=== PATIENT | female | born 1985 | race Caucasian/White ===

== ENCOUNTER 2024-04-17 15:58 | Outpatient (CLI) | payer OTHER, SELFPAY ==
[2024-04-17 17:12] LABS: HCG,Quantitative 11650 mIU/ml (0-5.42)
[2024-04-19 08:20] LABS: Progesterone 43.6 ng/mL (.)
== END 2024-04-17 23:59 | disposition home or self-care (01) ==
LOC: LAB 16:01
PROVIDERS: PCP Pediatrics; Visit Provider Nurse Practitioner Obstetrics & Gynecology
DX: Z32.01 Encounter for pregnancy test, result positive (principal)
CPT/HCPCS: 36415; 84144; 84702

== ENCOUNTER 2024-05-01 16:23 | Outpatient (CLI) | payer OTHER, SELFPAY | END 2024-05-01 23:59 | disposition home or self-care (01) | LOC: LAB.DROPOF 16:24 | PROVIDERS: PCP Obstetrics & Gynecology; Visit Provider Obstetrics & Gynecology | DX: O26.893 Other specified pregnancy related conditions, third trimester (principal); Z3A.28 28 weeks gestation of pregnancy | CPT/HCPCS: 87086 ==

== ENCOUNTER 2024-05-02 10:21 | Outpatient (CLI) | payer OTHER, SELFPAY ==
--- NOTE | 2024-05-02 10:29 | US_ITS ---
PROCEDURE: US OB /MATERNAL DETAIL CLINICAL INDICATION: Uncertain dates , US OB Complete COMPARISON: No exams were available for comparison FINDINGS: Transabdominal sonographic images of the pelvis were obtained. Her established due date is unknown. Single viable intrauterine gestation. Cephalic position. Placenta: Anteriorplacenta grade 1. There is an average amount of fluid. The cervix appears satisfactory. Closed and measuring 3.3 cm in length. Complete survey performed and was unremarkable on the submitted images as in PACS. No discrete anomalies identified on survey imaging by technologist. Active fetus. Three-vessel cord with satisfactory umbilical cord insertion. 4- chamber heart noted. Situs, aortic arch, LVOT, RVOT, three-vessel view appear normal. Survey of brain & ventricles Unremarkable. Cerebellum, thalamus, choroid plexus, cisterna magna appear normal. Face and neck survey unremarkable. Profile, nasion, lips and nose appeared normal. Diaphragm and chest views unremarkable. Abdomen: Both kidneys noted and unremarkable. Stomach and bladder noted and satisfactory. Spine: Survey of the spine satisfactory with no anomalies identified nor imaged. Cervical, thoracic, lower spine appear normal. Both arms and legs noted. Amniotic Fluid: Adequate. Measurements: Average ultrasound age 27weeks 3days. Estimated due date by ultrasound age 0907/29/2024. Estimated weight 1,034g, 2 lb 4 oz. BPD = 27weeks 1day HC = 27weeks 6days AC = 26weeks 6days FL = 27weeks 4days Heart Rate = 143bpm Cerebellum = 27weeks 6days Humerus = 27weeks 3days HC/AC is 1.14 FL/BPD is 0.76 FL/AC is 0.23 IMPRESSION: 1. Viable fetus in the cephalic presentation with an anterior placenta grade 1. 2. The fluid is within normal limits. 3. Anatomical scan appears normal. 4. From this ultrasound her due date will be July 29, 2024. Gestational age is 27 weeks 3 days. Dictated by: Zeke Hollins MD 05/03/2024 08:21 Zeke Hollins MD in OV 05/03/2024 08:21
[2024-05-02 11:45] LABS: Basophils % 0.5 % (0.1-2.0); Eosinophils # 0.2 K/mm3 (0.0-0.4); Eosinophils % 1.8 % (0.1-12.0); Hematocrit 31.1 % (37.0-47.0); Hemoglobin 10.8 g/dL (12.2-16.2); Lymphocytes # 2.4 K/mm3 (0.7-4.5); Lymphocytes % 25.8 % (10-50); Mean Corpuscular HGB Conc 34.8 g/dL (31.8-35.4); Mean Corpuscular Volume 97.9 fl (81-99); Mean Platelet Volume 6.9 fl (7.4-10.4); Monocytes # 0.5 K/mm3 (0.1-1.0); Monocytes % 5.4 % (1.7-9.3); Neutrophils # 6.2 K/mm3 (1.8-7.8); Neutrophils % 66.5 % (37.0-80.0); Platelet Count 351 K/mm3 (142-424); Red Blood Count 3.18 M/mm3 (4.20-5.40); Red Cell Distribution Width 13.4 % (11.5-17.5); White Blood Count 9.3 K/mm3 (4.8-10.8)
[2024-05-02 12:54] LABS: Hemoglobin A1C 4.9 % (4.0-6.0)
[2024-05-03 07:56] LABS: HIV (1&2) Antibody Rapid NON REACTIVE
[2024-05-03 10:06] LABS: HCV Ab Non Reactive (Non Reactive); Hepatitis B Surface Antigen Negative (Negative); Rubella Antibodies, IgG 3.54 index (Immune >0.99)
[2024-05-03 10:11] LABS: Rapid Plasma Reagin Ab Titer Non Reactive titer (NonRea<1:1)
== END 2024-05-02 23:59 | disposition home or self-care (01) ==
PROVIDERS: Visit Provider Obstetrics & Gynecology
DX: Z36.3 Encounter for antenatal screening for malformations (principal); O09.522 Supervision of elderly multigravida, second trimester; O09.32 Supervision of pregnancy with insufficient antenatal care, second trimester; O99.332 Smoking (tobacco) complicating pregnancy, second trimester; O99.322 Drug use complicating pregnancy, second trimester; O09.892 Supervision of other high risk pregnancies, second trimester; Z3A.27 27 weeks gestation of pregnancy; Z72.89 Other problems related to lifestyle; F41.9 Anxiety disorder, unspecified; F60.3 Borderline personality disorder; F43.12 Post-traumatic stress disorder, chronic; Z86.59 Personal history of other mental and behavioral disorders
CPT/HCPCS: 36415; 76811; 83036; 85025; 86593; 86762; 86850; 87340

== ENCOUNTER 2024-07-09 16:55 | Outpatient (CLI) | payer OTHER, SELFPAY | END 2024-07-09 23:59 | disposition home or self-care (01) | LOC: LAB.DROPOF 16:56 | PROVIDERS: PCP Obstetrics & Gynecology; Visit Provider Obstetrics & Gynecology | DX: Z34.90 Encounter for supervision of normal pregnancy, unspecified, unspecified trimester (principal) | CPT/HCPCS: 86403 ==

== ENCOUNTER 2024-07-18 11:48 | Outpatient (CLI) | payer OTHER, SELFPAY ==
[2024-07-18 11:50] VITALS: BP 127/86; PULSE 75; RESP 18; TEMP 36.7; O2SAT 99; BMI 30.2
[2024-07-18] MEDS: LACTATED RINGERS 1000ML 1,000 ML 999 ML IV (12:45)
== END 2024-07-18 14:10 | disposition home or self-care (01) ==
LOC: OBOUT 11:50 → OB 11:51
PROVIDERS: Visit Provider Obstetrics & Gynecology
DX: O36.8330 Maternal care for abnormalities of the fetal heart rate or rhythm, third trimester, not applicable or unspecified (principal); Z3A.38 38 weeks gestation of pregnancy
CPT/HCPCS: G0463; J7120

== ENCOUNTER 2024-07-23 00:37 | Inpatient (IN) | payer OTHER, SELFPAY ==
[2024-07-23 01:06] VITALS: BMI 30.2
[2024-07-23 01:28] LABS: Microscopic, Urine URINE MICROSCOPIC (MICROSCOPIC)
[2024-07-23 01:30] VITALS: BP 138/79; PULSE 74; RESP 18; TEMP 36.6; BMI 30.2
[2024-07-23 01:30] LABS: Appearance,Urine CLEAR (Clear); Bilirubin,Urine Negative (Negative); Blood, Urine Negative (Negative); Color,Urine YELLOW (Yellow); Glucose,Urine (UA) Negative (Negative); Ketones,Urine Negative (Negative); Leukocyte Esterase,Urine Negative (Negative); Nitrate,Urine Negative (Negative); Protein,Urine Negative (Negative); Urobilinogen,Urine 0.2 EU/dl (0.2)
[2024-07-23 01:39] LABS: Bacteria,Urine 1+ /lpf
[2024-07-23 01:50] LABS: Benzodiazepines Screen,Urine Negative ng/ml (<200)
[2024-07-23 01:51] LABS: Barbiturates Screen,Urine Negative ng/ml (<200); Cannabinoid Screen,Urine Negative ng/ml (<50)
[2024-07-23 01:52] LABS: Cocaine Screen,Urine Negative ng/ml (<300)
[2024-07-23 01:53] LABS: Methadone Screen,Urine Negative ng/ml (<300); Opiate Screen,Urine Negative ng/ml (<300)
[2024-07-23 01:54] LABS: Phencyclidine Screen,Urine Negative ng/ml (<25)
[2024-07-23] MEDS: BUTORPHANOL TARTRATE 1 MG/ML VIAL IV (03:00)
[2024-07-23 03:04] LABS: Basophils % 0.3 % (0.1-2.0); Eosinophils # 0.1 K/mm3 (0.0-0.4); Eosinophils % 1.1 % (0.1-12.0); Hematocrit 32.7 % (37.0-47.0); Hemoglobin 10.3 g/dL (12.2-16.2); Lymphocytes # 2.7 K/mm3 (0.7-4.5); Lymphocytes % 26.4 % (10-50); Mean Corpuscular HGB Conc 31.6 g/dL (31.8-35.4); Mean Corpuscular Volume 95.2 fl (81-99); Mean Platelet Volume 7.2 fl (7.4-10.4); Monocytes # 0.6 K/mm3 (0.1-1.0); Monocytes % 6.1 % (1.7-9.3); Neutrophils # 6.8 K/mm3 (1.8-7.8); Neutrophils % 66.1 % (37.0-80.0); Platelet Count 360 K/mm3 (142-424); Red Blood Count 3.43 M/mm3 (4.20-5.40); Red Cell Distribution Width 14.9 % (11.5-17.5); White Blood Count 10.4 K/mm3 (4.8-10.8)
[2024-07-23 04:12] LABS: Ethyl Alcohol < 10 mg/dl (0-10)
[2024-07-23] MEDS: LACTATED RINGERS 1000ML 1,000 ML 250 ML IV (05:41)
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
[2024-07-23] MEDS: DEXTROSE 5%-LACTATED RINGERS 1,000 ML 125 ML IV (07:31)
[2024-07-23] MEDS: OXYTOCIN/RINGERS LACTATE 30 UNITS/500 ML BAG IV (07:31)
[2024-07-23 07:36] VITALS: BP 121/72; PULSE 63; RESP 16; TEMP 36.3; O2SAT 98
--- NOTE | 2024-07-23 08:31 | P.CONPHA_ITS ---
Pharmacy Intervention Comments: MEDICATION RECONCILIATION COMPLETED ON PATIENT USING EXTERNAL FILL HISTORY FROM PHARMACY AND LIST FROM HEALTHCARE CORPORATE ACCOUNT DIRECTOR OFFICE. -VALENTINA RODRIGUEZD
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
[2024-07-23] MEDS: diphenhydrAMINE 50MG/ML VIAL 12.5 MG IV (09:37)
[2024-07-23 11:04] LABS: Cord Blood PH 7.31 (7.35-7.45)
[2024-07-23] MEDS: OXYTOCIN/RINGERS LACTATE 30 UNITS/500 ML BAG 40 UNITS IV (11:07)
--- NOTE | 2024-07-23 11:07 | EXP.DN ---
Delivery Note Delivery Date:: 07/23/24 Delivery Time:: 10:53 Anesthesia Type: Epidural Was labor medically induced?: No Induction method: none Gestational age (weeks): 39 Infant delivered prior to 39 weeks?: No Gender: Female at 1 minute: 7 at 5 minutes: 9 Delivery Procedure:: Mom complete with epidural. Pushed for approximately 11 minutes. Head delivered spontaneously over intact perineum in OA position. No nuchal cord. Anterior shoulder delivered with gentle downward pressure. Posterior shoulder and remainder of body delivered spontaneously. Baby placed on maternal abdomen, mouth and nares bulb suctioned, warmed/dried and stimulated. Delayed cord clamping was performed for 60 seconds. Cord was clamped and cut by father of baby. Umbilical cord gases obtained. Cord blood was obtained. Placenta delivered spontaneously and intact. Placenta and umbilical cord meconium stained. Odor noted. Aerobic and anaerobic cultures collected. Placenta will be sent to pathology for review. No lacerations. Mom and baby were skin to skin and doing well after delivery. Live female baby (baby's name is Any) APGARs 7 (1 min), 9 (5 min) EBL 50 mL Placental Delivery Description: Spontaneous
[2024-07-23 11:10] LABS: Cord Blood PH 7.18 (7.35-7.45)
[2024-07-23] MEDS: IBUPROFEN 400 MG TABLET 800 MG PO ×2 (13:49→21:52)
--- NOTE | 2024-07-23 14:00 | SW/DCPLANNER ---
Addendum entered by Radha Linwood 07/25/24 15:27: Per Olga w/ CPS the plan is for this to discharge home w/ Ksenia and supervision of her mother (Clementina Hicks 06/24/61). Clementina's contact number is [phone]. Olga also stated that if OB staff has any questions tomorrow to please contact [facility]patch ([phone]) and ask for the leather sponger Caustic Room Attendant. I am currently waiting for Olga to email me a care plan for this patient. I have updated OB staff and will notify Dr Baker. Addendum entered by Radha Linwood 07/25/24 12:37: Olga onsite this AM to speak w/ patient, Misa and Obed. Olga stated her plan is to do a home investigation and background checks w/ Misa and Stuart. Olga also stated that due to patient being she would have to make contact w/ 's father. Olga will also be discussing situation w/ her supervisor carton and can supply. Olga stated that she will continue to follow up w/ me regarding situation. Addendum entered by Radha Riley 07/24/24 15:21: Case has been accepted by Central Intake. Per OB staff (Mohini) stated that CPS worker Olga Ortega ([phone]) called and stated that she would be here later this afternoon or tomorrow morning. Olga originally discussed supervision/removal of from mom's room. I did call and speak w/ Olga regarding situation. Olga stated that infant is fine to be in the care of mother as long as staff feels patient is appropriate. Olga did call and speak w/ patient regarding case. Olga will be onsite tomorrow morning at 10AM. I will continue to follow up w/ OB staff, CPS and patient. Addendum entered by Radha Linwood 07/24/24 09:06: I was notified this AM regarding situation last night w/ patient and family members. Per Orthopaedic Technologist (Gabe) family members (5) were asked to leave due to visitation ending at 9PM. Family members became irate w/ Gabe stating why are the rules changing and being asked to elave and why there cannot be more than one person to spend the night w/ the patient since she does not feel safe concerns that the adoptive parents could not stay and crook w/ baby well we can just sign out AMA and yall cant stop us from taking the baby well if we start fighting people off in here are keep on going then nobody is going to stop us from leaving this fucking place this is all because of their addiction status and their addiction were calling our metal cans supervisor and were taking this place down the mom can write down on a piece of paper what her wishes are and that would be sufficient enough for us to use a legal document . [facility] staff did put all departments on high alert and contacted dispatch. Two officers arrived and escorted (8) family members out of the department. Patient's mother's significant other did agree to abide by the rules and stay the night w/ the patient. I did report this situation to Central Intake. Due to prior report still pending it is attached to the same ID# from yesterday's report (ID#[id number]). Original Note: I received a referral on this patient regarding positive UDS, planned adoption. Patient delivered infant female (Any Arellano) today 07/23/24. Per patient 's father is not involved. Patient tested positive on the following dates: 05/01 for amphetamines, benzo and meth, 06/02: amphetamines and meth and on 07/09 for amphetamines, meth and THC. Patient is positive on admission for amphetamines and admits to using meth within the last week. Patient also admits to consuming alcohol during . Infant's urine drug screen and cord is still pending. Patient will reside at [address] [place] [address] in [place] [address] w/ her mother (Stefany Hicks). Patient states that she does have two other children but does not have custody. Patient first visit was at 27 weeks and only had four visits. Patient stated that she plans to put baby up for adoption. Patient stated that infant will be going w/ her best friend's daughter (Jenny Willis and Obed Arellano). I have reported this case to Central Intake ID# [id number]. I will continue to follow up w/ MD, OB staff and Central Intake. Patient did express self harm to nursing staff.
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
[2024-07-23] MEDS: PRENATAL MULTIVITAMIN W/IRON 1 EACH PO (17:52)
[2024-07-23] MEDS: ACETAMINOPHEN 500MG TAB 1000 MG PO (17:52)
--- NOTE | 2024-07-23 19:48 | PEERSUPPORT ---
Peer Support Note Patient Information Patient Information: DOS: 07/23/2024 Reason: SHY/PS Initial 4:30 PM PS was sleeping. 5:30 PM -6:45 PM PS ask for consent to speak in front of visitors, Pt confirms consent. Pt is open and honest when sharing her nursing home [facility] with SHY. Pt discloses awareness to under lying issues of her addiction. PS provides empathetic listening to validate feelings. PS shares personal experiences that are relevant to build rapport and understanding. Pt is tearful when processing. PS explored periods of sobriety for Pt to gain understanding of possible referrals options during follow up. Pt agrees to check ins by PS. 8:30 PM Pt was concerned with her safety of her and the child, following her understanding of her plan with visitors or adoptive parents being allowed to stay overnight. She disclosed the profile and concerns of her reason for feeling unsafe. PS provided active listening to validate feelings. PS took note of profile acting as advocate to provide security with making the staff involved aware. Pt confirmed she does feel secure and less stressed with her one visitor who is staying overnight per policy and will have a plan for tomorrow to prevent any confusion.
[2024-07-23 21:54] VITALS: BP 145/70; PULSE 74; RESP 16; TEMP 36.6; O2SAT 99
[2024-07-24 04:14] VITALS: BP 134/80; PULSE 57; RESP 15; O2SAT 97
[2024-07-24 07:25] LABS: Basophils % 0.4 % (0.1-2.0); Eosinophils # 0.2 K/mm3 (0.0-0.4); Eosinophils % 1.8 % (0.1-12.0); Hematocrit 33.7 % (37.0-47.0); Hemoglobin 10.7 g/dL (12.2-16.2); Lymphocytes # 2.8 K/mm3 (0.7-4.5); Lymphocytes % 25.3 % (10-50); Mean Corpuscular HGB Conc 31.8 g/dL (31.8-35.4); Mean Corpuscular Volume 94.1 fl (81-99); Mean Platelet Volume 7.9 fl (7.4-10.4); Monocytes # 0.7 K/mm3 (0.1-1.0); Monocytes % 5.9 % (1.7-9.3); Neutrophils # 7.4 K/mm3 (1.8-7.8); Neutrophils % 66.7 % (37.0-80.0); Platelet Count 363 K/mm3 (142-424); Red Blood Count 3.58 M/mm3 (4.20-5.40); Red Cell Distribution Width 15.1 % (11.5-17.5); White Blood Count 11.1 K/mm3 (4.8-10.8)
[2024-07-24 07:36] LABS: Activated Partial Thrombo Time 24.9 seconds (22.8-30.6); Fibrinogen 425 mg/dL (229.9-363.5); INR 0.86 (0.9-1.1); Prothrombin Time 9.8 seconds (10.1-12.5)
[2024-07-24 07:39] LABS: D-Dimer 1.09 ug/mL (0.0-0.5)
[2024-07-24 08:05] LABS: Alanine Aminotransferase 19 U/L (12-78); Albumin Level 2.3 g/dl (3.5-5.0); Albumin/Globulin Ratio 0.9 (1.1-1.8); Alkaline Phosphatase 150 U/L (38-126); Anion Gap 5.5 mEq/L (5-15); Aspartate Amino Transferase 28 U/L (14-36); Bilirubin,Total 0.3 mg/dl (0.2-1.3); Blood Urea Nitrogen 7 mg/dl (7-17); Calcium 8.2 mg/dl (8.4-10.2); Carbon Dioxide 22 mmol/L (22.0-30.0); Chloride 109 mmol/L (98-107); Creatinine Clearance Estimated 236 mL/min (50-200); Estimated Glomerular Filt Rate 180 ml/min (>60); GFR (African American) 217 ML/MIN (>60); Globulin 2.5 g/dL (1.3-3.2); Glucose 114 mg/dl (74-100); Potassium 3.5 mmoL/L (3.5-5.1); Sodium 133 mmol/L (136-145); Total Protein,Serum 4.8 g/dl (6.3-8.2); Uric Acid 3.6 mg/dl (2.5-6.2)
--- NOTE | 2024-07-24 08:45 | EXP.ACUTE.PN ---
Subjective *Date: 07/24/24 *Time: 10:46 Interval history: PPD # 1 s/p Sleeping this morning. She had headache last night. After waking her up she did not have a headache now. She does report back pain since pushing yesterday. Breast and formula feeding. Lochia is appropriate. Voiding without difficulty and passing flatus. Tolerating regular diet. Denies fever/chills, chest pain and shortness of breath. No headaches, vision changes, lightheadedness/dizziness. No lower extremity swelling. Ambulating well ad angela. Medical Exam Vital signs and Labs for Last 24 Hours: Vital Signs Temp Pulse Resp BP Pulse Ox O2 Del Method 07/24/24 04:14 57 L 15 134/80 97 Room Air 07/23/24 21:54 97.9 F 74 16 145/70 H 99 Room Air Laboratory Results - last 24 hr 07/23/24 11:00: Cord ABG pH 7.31 L 07/23/24 11:01: Cord ABG pH 7.18 L* 07/24/24 06:50: WBC 11.1 H, RBC 3.58 L, Hgb 10.7 L, Hct 33.7 L, MCV 94.1, MCH 30.0, MCHC 31.8, RDW 15.1, Plt Count 363, MPV 7.9, Neut % (Auto) 66.7, Lymph % (Auto) 25.3, [place] % (Auto) 5.9, Eos % (Auto) 1.8, Baso % (Auto) 0.4, Neut # (Auto) 7.4, Lymph # (Auto) 2.8, [place] # (Auto) 0.7, Eos # (Auto) 0.2, Baso # (Auto) 0.0, PT 9.8 L, INR 0.86 L, APTT 24.9, Fibrinogen 425 H, D-Dimer 1.09 H, Sodium 133 L, Potassium 3.5, Chloride 109 H, Carbon Dioxide 22, Anion Gap 5.5, BUN 7, Creatinine 0.40 L, Estimated Creat Clear 236, Estimated GFR 180, Est GFR ( Amer) 217, Glucose 114 H, Uric Acid 3.6, Calcium 8.2 L, Total Bilirubin 0.3, AST 28, ALT 19, Alkaline Phosphatase 150 H, Total Protein 4.8 L, Albumin 2.3 L, Globulin 2.5, Albumin/Globulin Ratio 0.9 L I & O for Labs for Last 24 Hours: Intake & Output 07/21/24 07/22/24 07/23/24 07/24/24 23:59 23:59 23:59 23:59 Weight 171 lb Microbiology Reports for the Last 24 Hours: Microbiology 07/23/24 11:28 Lochia Gram Stain - Final Head: Present atraumatic and normocephalic ENT: Present mucous membranes moist Neck: Present full ROM Respiratory: Present CTA bilaterally and normal respiratory effort Cardiac: Present Reg Rate and Rhythm GI: Present soft; Absent distention or tenderness Comments:: Uterine fundus firm and below umbilicus Rectal (female): Present deferred (female): Present deferred Extremities: Present full ROM; Absent edema or calf tenderness Neuro: Present alert, awake and moves all extremities Assessment and Plan *Assessment and plan (1) Status post normal vaginal delivery: Status: Acute Category: Medical (2) Limited care: Status: Acute Category: Medical Code(s): O09.30 - Supervision of with insufficient care, unspecified trimester (3) Current every day vaping: Status: Acute Category: Social Hx Code(s): Z72.89 - Other problems related to lifestyle (4) Tobacco use during : Status: Acute Qualifiers: Trimester: third trimester Qualified Code(s): O99.333 - Smoking (tobacco) complicating , third trimester Category: Social Hx Code(s): O99.330 - Smoking (tobacco) complicating , unspecified trimester (5) Drug use affecting , antepartum: Status: Acute Category: Medical Code(s): O99.320 - Drug use complicating , unspecified trimester (6) History of night terrors: Status: Acute Category: Medical Code(s): Z86.59 - Personal history of other mental and behavioral disorders (7) Anxiety: Status: Acute Category: Medical Code(s): F41.9 - Anxiety disorder, unspecified (8) Chronic post-traumatic stress disorder (PTSD): Status: Acute Category: Medical Code(s): F43.12 - Post-traumatic stress disorder, chronic (9) History of OCD (obsessive compulsive disorder): Status: Acute Category: Medical Code(s): Z86.59 - Personal history of other mental and behavioral disorders (10) Borderline personality disorder: Status: Acute Category: Medical Code(s): F60.3 - Borderline personality disorder (11) Advanced maternal age in multigravida: Status: Acute Qualifiers: Trimester: third trimester Qualified Code(s): O09.523 - Supervision of elderly multigravida, third trimester Category: Medical Code(s): O09.529 - Supervision of elderly multigravida, unspecified trimester (12) Late care affecting : Status: Acute Qualifiers: Trimester: third trimester Qualified Code(s): O09.33 - Supervision of with insufficient care, third trimester Category: Medical Code(s): O09.30 - Supervision of with insufficient care, unspecified trimester Plan Continue routine care AM Hgb 10.7 (10.3 on admission) Will continue to monitor BP, headache and back pain. BP within normal limits PIH labs within normal limits web services manager is involved in case. Patient stated she was giving baby up for adoption but does not have any legal paperwork. She is now breast feeding her baby but states she doesn't want to keep her. Baby is being closely monitored for AMAYA
[2024-07-24] MEDS: ACETAMINOPHEN 500MG TAB 1000 MG PO ×3 (08:46→21:29)
[2024-07-24] MEDS: IBUPROFEN 400 MG TABLET 800 MG PO ×2 (08:46→17:36)
[2024-07-24 12:14] LABS: Rapid Plasma Reagin Ab Titer Non Reactive titer (NonRea<1:1)
--- NOTE | 2024-07-24 16:47 | PEERSUPPORT ---
Peer Support Note Patient Information Patient Information: DOS
[2024-07-24 20:34] VITALS: BP 127/59; PULSE 66
[2024-07-24] MEDS: SENNA 8.6MG TABLET 8.6 MG PO (21:29)
[2024-07-25 04:30] VITALS: BP 164/71; PULSE 79; TEMP 36.9
[2024-07-25] MEDS: IBUPROFEN 400 MG TABLET 800 MG PO ×2 (04:34→14:12)
[2024-07-25] MEDS: ACETAMINOPHEN 500MG TAB 1000 MG PO ×2 (04:34→14:12)
[2024-07-25 04:46] VITALS: BP 150/78; PULSE 61; RESP 18
[2024-07-25 09:26] VITALS: BP 145/70; PULSE 60; RESP 20; TEMP 36.5; O2SAT 100
--- NOTE | 2024-07-25 09:28 | EXP.PN ---
Subjective *Date: 07/25/24 *Time: 09:15 Interval history: Called to bedside for pt. c/o headache. Found pt. in bed asleep on stomach; easily arousable. Pt. states her H/A started 07/24/2024 after delivery. Pt. states H/A worse when sitting upright, relieved when lying flat. Back examined. 2 punctures sites noted. No redness/edema/discharge noted. Pt. no longer has PIV. Instructed nursing staff to place PIV. Order for Cosyntropin 0.5mg in 1L LR over 8hrs. Discussed pt. condition w/Bernard Esquivel CRNA. Will reassess pt. for possible Epidural blood patch after Cosyntropin started. Will contimue to follow as needed. Exam Data for Last 24 hours Vital signs and Labs for Last 24 Hours: Temp Pulse Resp BP Pulse Ox O2 Del Method 98.4 F 61 18 150/78 H 97 Room Air 07/25/24 04:30 07/25/24 04:46 07/25/24 04:46 07/25/24 04:46 07/24/24 04:14 07/24/24 04:14 Laboratory Results - last 24 hr 07/23/24 02:46: RPR Titer Non reactive I & O for Last 24 hours: Intake & Output 07/22/24 07/23/24 07/24/24 07/25/24 23:59 23:59 23:59 23:59 Weight 77.564 kg Microbiology Reports for the Last 24 Hours: Microbiology 07/23/24 11:28 Lochia Gram Stain - Final 07/23/24 11:28 Lochia Wound Culture - Preliminary Gram Negative Rods
[2024-07-25] MEDS: LACTATED RINGERS IV (09:49)
[2024-07-25] MEDS: COSYNTROPIN IV (09:49)
--- NOTE | 2024-07-25 09:52 | P.DS_ITS ---
General Admission date:: 07/23/24 Discharge date: 07/25/24 HPI HPI HPI: Chief complaint: Regular, painful contractions History of present illness: Ksenia is a 39 yo at 39w1d who presented to [facility] L&D with complaint of regular, painful contractions. Upon arrival to L&D cervix was 2/80/-2. She was scheduled for elective induction today, 07/23/24. Repeat cervical exam around 0500 this morning was 3.5/90/-2. She has had late care and very limited care. First ob visit was 27 weeks. She had a total of 4 visits. complicated by AMA, PTSD, Borderline personality disorder, OCD, A nxiety, night terrors, Tobacco use and vaping every day, Alcohol use during , Methamphetamine, THC and ecstasy use during . History of drug use - cocaine and crack. She plans to give this baby up for adoption to a family friend. History of Present Criteria for establishing EDC:: based on 2nd trimester US only care: limited care Ultrasounds: normal mid trimester US Obstetrical complications: none Medical complications: none Labs Blood type: O (+) positive Rubella: immune RPR/VDRL: nonreactive GBS status: negative HBsAG: negative Hospital Course Hospital Course Hospital Course: Ksenia Hicks is a 39-year-old day 2 from a normal spontaneous vaginal delivery. She delivered a live viable female infant which weighed 6 pounds and 11 ounces. Delivery occurred on 07/23/2024 at 1053. Apgars were 7 and 9. EBL of 50. Her hemoglobin went from 10.3-10.7. She is rubella immune and GBS negative. She has both breast and bottlefeeding. Reports her pain is well-controlled, her lochia scant, and she is tolerating p.o. without nausea or vomiting. She is voiding spontaneously. All questions and concerns were addressed and she desires discharge home today. Prior to discharge the patient was evaluated by social work program coordinator as well as behavioral health. Social work note reviewed Per social work and CPS plan is for to discharge home with patient under the supervision of her mother, Clementina. Routine discharge instructions reviewed with patient in detail and she voiced understanding. She will follow-up in the office in 2 weeks. Exam Data for Last 24 hours Vital signs and Labs for Last 24 Hours: Temp Pulse Resp BP Pulse Ox O2 Del Method 98.4 F 61 18 150/78 H 97 Room Air 07/25/24 04:30 07/25/24 04:46 07/25/24 04:46 07/25/24 04:46 07/24/24 04:14 07/24/24 04:14 Laboratory Results - last 24 hr 07/23/24 02:46: RPR Titer Non reactive I & O for Last 24 hours: Intake & Output 07/22/24 07/23/24 07/24/24 07/25/24 23:59 23:59 23:59 23:59 Weight 171 lb Microbiology Reports for the Last 24 Hours: Microbiology 07/23/24 11:28 Lochia Gram Stain - Final 07/23/24 11:28 Lochia Wound Culture - Preliminary Gram Negative Rods Constitutional Constitutional: no acute distress *Routine HEENT Exam Head: Present normocephalic Eye: Present EOMI and PERRL ENT: Present mucous membranes moist *Routine Neck Exam Neck: Present supple; Absent lymphadenopathy *Routine Respiratory Exam Respiratory: Present CTA bilaterally *Routine Cardiovascular Exam Cardiovascular: Present RRR *Routine Abdominal Exam Abdominal: Present soft and normoactive bowel sounds; Absent tenderness *Routine Extremities Exam Extremities: Absent cyanosis, clubbing or edema *Routine Skin Exam Skin: Present warm; Absent rash *Routine Neurological Exam Neurological: Present alert and oriented X3 Results Data Completed and Pending Labs on day of discharge: Labs from last 24 hours 07/23/24 02:46 RPR Titer Non reactive Preliminary micro results at discharge 07/23/24 11:28 Wound Culture - Preliminary Lochia Gram Negative Rods DS: Diagnosis Discharge Diagnosis (1) Status post normal vaginal delivery: Status: Acute (2) Limited care: Status: Acute Code(s): O09.30 - Supervision of with insufficient care, unspecified trimester (3) Current every day vaping: Status: Acute Code(s): Z72.89 - Other problems related to lifestyle (4) Tobacco use during : Status: Acute Code(s): O99.330 - Smoking (tobacco) complicating , unspecified trimester Qualifiers: Trimester: third trimester Qualified Code(s): O99.333 - Smoking (tobacco) complicating , third trimester (5) Drug use affecting , antepartum: Status: Acute Code(s): O99.320 - Drug use complicating , unspecified trimester (6) History of night terrors: Status: Acute Code(s): Z86.59 - Personal history of other mental and behavioral disorders (7) Anxiety: Status: Acute Code(s): F41.9 - Anxiety disorder, unspecified (8) Chronic post-traumatic stress disorder (PTSD): Status: Acute Code(s): F43.12 - Post-traumatic stress disorder, chronic (9) History of OCD (obsessive compulsive disorder): Status: Acute Code(s): Z86.59 - Personal history of other mental and behavioral disorders (10) Borderline personality disorder: Status: Acute Code(s): F60.3 - Borderline personality disorder (11) Advanced maternal age in multigravida: Status: Acute Code(s): O09.529 - Supervision of elderly multigravida, unspecified trimester Qualifiers: Trimester: third trimester Qualified Code(s): O09.523 - Supervision of elderly multigravida, third trimester (12) Late care affecting : Status: Acute Code(s): O09.30 - Supervision of with insufficient care, unspecified trimester Qualifiers: Trimester: third trimester Qualified Code(s): O09.33 - Supervision of with insufficient care, third trimester Meds Home Medications and Allergies Home Medications ?Medication ?Instructions ?Recorded ?Confirmed ?Type clonidine HCl 0.1 mg tablet 0.1 mg PO HS 05/01/24 07/23/24 History lamotrigine 25 mg tablet (Lamictal) 25 mg PO DAILY 05/01/24 07/23/24 History vits no.126-ferrous fum 1 tab PO DAILY 06/02/24 07/23/24 History 28 mg iron-folic acid 800 mcg tablet (Classic ) ferrous sulfate 325 mg (65 mg 325 mg PO DAILY #30 tabs 07/09/24 07/23/24 Rx iron) tablet fluoxetine 10 mg capsule (Prozac) 10 mg PO DAILY #30 caps 07/09/24 07/23/24 Rx acetaminophen 500 mg tablet 500 mg PO Q6H PRN fever or pain 07/25/24 Rx #30 tabs ibuprofen 800 mg tablet 800 mg PO Q8H PRN pain #60 tabs 07/25/24 Rx sennosides 8.6 mg tablet (Senna 8.6 mg PO BIDP PRN Constipation 07/25/24 Rx Lax) #60 tabs New Prescriptions to Start Prescriptions: acetaminophen MiteshEssie lang ibuprofen MiteshEssie lang sennosides [Senna Lax] MiteshEssie lang Allergies Allergy/AdvReac Type Severity Reaction Status Date / Time No Known Allergies Allergy Verified 07/23/24 02:13 Discharge Plan Disposition Patient Disposition: Home, Self-Care Discharge Order Discharge Orders: Discharge Order (Routine); Ordered 07/25/24 Ordered By: Essie Sagastume Follow up Plan Follow up with: Radhika Rucker DO [Staff Physician] - 08/07/24 1:45 pm Prescriptions/Medication Reconciliation: New sennosides [Senna Lax] 8.6 mg Tablet 8.6 mg PO BIDP PRN (Reason: Constipation) Qty: 60 2RF ibuprofen 800 mg tablet 800 mg PO Q8H PRN (Reason: pain) Qty: 60 2RF acetaminophen 500 mg tablet 500 mg PO Q6H PRN (Reason: fever or pain) Qty: 30 3RF Continued clonidine HCl 0.1 mg tablet 0.1 mg PO HS lamotrigine [Lamictal] 25 mg tablet 25 mg PO DAILY Classic 28 mg iron- 800 mcg tablet 1 tab PO DAILY fluoxetine [Prozac] 10 mg capsule 10 mg PO DAILY Qty: 30 2RF ferrous sulfate 325 mg (65 mg iron) tablet 325 mg PO DAILY Qty: 30 1RF Problem Reconciliation Problems Reviewed?: Yes Patient Discharge Instructions ACTIVITY: Continue current activity DIET: regular diet Additional Instructions: Congratulations on the delivery of your sweet baby girl. It is my privilege to be a part of your [employer]EL[employer]ING [employer] team. Discharge: -Take 800 mg Ibuprofen every 8 hours as needed for pain. You can also take 500- 1000 mg of Tylenol in between doses, every 6-8 hours. -Colace can be taken 1-2 times per day as you need to soften your stool. Make sure to drink at least 8 cups of water per day. -Iron supplements can make you constipated. You can take iron tablets every other day if constipation is too bad. -Nothing in the vagina for 6 weeks - no intercourse, douching, tampons. No tub baths or swimming pools. -Do not lift greater than 20pounds for 2 weeks, this is the equivalent of 2 gallons of milk. -Reasons to return to L&D or call On-Call doctor - fever (greater than 100.4) - heavy vaginal bleeding (soaking through 1 pad in less than 2 hours or passing clots that are egg sized) - vaginal discharge (malodorous and/or purulent) - severe headaches, leg tenderness/edema, or any other symptoms that warrant immediate medical attention. - Please call if your blood pressure is 160/110 or greater or if you have an unrelenting headache, changes in your vision, chest pain, shortness of breath, o r pain underneath your right rib cage. depression/blues - Normal to feel anxious/overwhelmed for first 2 weeks - Talk to your doctor if: anxiety lasts over 2 weeks, trouble bonding with baby, withdrawing from other family members, thoughts of harming yourself or others Essie Sagastume DO [facility] [phone] *Nothing in the Vagina for 6 weeks* *No strenuous activity* *No heavy lifting* *No tub baths until okay's by MD* Patient Instructions: Depression, Hemorrhage, DI for Labor and Delivery, Vaginal , DI for Pre-eclampsia, H Post Discharge Instructions Print Language: Nigerien Providers Primary Care Provider: Provider,Referral Admit Provider: Essie Sagastume Attending Provider: Essie Sagastume
[2024-07-25] MEDS: NICOTINE 21MG/24HR PATCH 21 MG TD (15:26)
[2024-07-25 16:30] VITALS: BP 156/86; PULSE 75; RESP 18; TEMP 36.3; O2SAT 99
--- NOTE | 2024-07-25 17:44 | PEERSUPPORT ---
Peer Support Note Patient Information Patient Information: DOS: 07/25/2024 Reason: PS Check in Pt was tearful and frustrated by the changes in her plans. She stated she feeling overwhelmed with being told one thing that then switches to something different was not helping her feel secure. PS provides empathetic listening for validation of feelings. Pt is able to regulate herself to a place of acceptance to these changes through processing her thoughts and emotions. PS facilitates discussion with Pt and supportive visitors to an agreeable plan of action for safety. PS explores Pt daily routines bringing awareness to medications through primary and psych. Pt stated she does have medication through her counseling services. Pt agrees to make appointment with her counseling service to process and discuss proper medications for ongoing treatment. 4:30 PM Pt was in a calmer state overall. She shared openly and heartfelt the love she has for her child and is aware of the responsibilities through decisions to be made. Her main concern was the safety of her child and self. PS explored safety at home. Pt stated she felt safe and secure at home as long as her baby was with her. Pt disclosed legal conditions through DVO that protect her. PS provides referrals to outpatient treatment facilites, contact numbers for her counseling service and medication management, safe housing in she feels distressed and need options. PS included in a packet of coping skills, mindfulness worksheets, goals for self to make healthy and rational decisions. 8:00 PM Pt was sleeping. PS informed nurse of information provided in packet given to Pt with PS contact information for when discharged. PS will follow up with Pt periodically to provide support and resources available.
--- NOTE | 2024-07-26 16:09 | PC.NURSE ---
1435-Spoke with LOUANN Davis guest relations executivewill call clerk for [facility]. LOUANN updated that Any has started scoring for AMAYA, and the guest relations executivewill call clerk will be updated if the NB would need to transfer to a higher level of care. LOUANN notified that Clementina has been here on occasion to supervise Ksenia with the NB. When Clementina was here she was staggering while in the hallway and slept in the recliner most of the stay. Kamran Davenport spoke on the phone with keycase assembler Olga and asked for the NB to be held until Sunday so the case and supervision of the NB could be reviewed. Letter head with NB hold being emailed to AMBAR Peterson
[2024-07-26 17:30] LABS: Amphetamine Positive (.); Amphetamine (GC/MS) 1987 ng/mL (Cutoff=500); Amphetamines Positive (.); Methamphetamine Positive (.); Methamphetamine (GC/MS) >3000 ng/mL (Cutoff=500)
--- NOTE | 2024-07-26 18:30 | PC.NURSE ---
3643-Olga Davila from [facility] contacted the department reporting she spoke with her supervisor pipelines about making Stuart the supervisor pipelines while mom and baby are in the hospital. Olga reports she will email this new plan to staff to implement while baby remains in the hospital until Sunday.
== END 2024-07-25 18:45 | disposition home or self-care (01) | DRG 807 ==
PROVIDERS: Obstetrics & Gynecology; Admitting Provider Obstetrics & Gynecology; Visit Provider Obstetrics & Gynecology
DX: O99.324 Drug use complicating childbirth (principal); Z37.0 Single live birth; Z3A.39 39 weeks gestation of pregnancy; O99.334 Smoking (tobacco) complicating childbirth; F17.290 Nicotine dependence, other tobacco product, uncomplicated; F60.3 Borderline personality disorder; F43.12 Post-traumatic stress disorder, chronic; Z72.89 Other problems related to lifestyle; F15.90 Other stimulant use, unspecified, uncomplicated; F10.90 Alcohol use, unspecified, uncomplicated; Y90.0 Blood alcohol level of less than 20 mg/100 ml; F41.9 Anxiety disorder, unspecified
CPT/HCPCS: 36415; 59025; 80053; 80307; 80320; 80324; 81001; 82800; 84550; 85025; 85378; 85384; 85610; 85730; 86593; 86850; 87070; 87077; 87186; 87205; 94761; G0283; J0595; J0834; J1200; J3010; J7120